=== PATIENT | female | born 1935 | race Caucasian/White ===

== ENCOUNTER → 2018-12-16 | Day surgery (SDC) | payer MEDICARE ==
[2018-12-11 15:03] VITALS: BMI 22.7
[~2018-12-16] MED LIST: CEFAZOLIN 1 GM VIAL ONE; Gentamicin 80 MG/2 ML VIAL ONE; Midazolam HCl 2 mg/2 ml Vial ONE; hydrALAZINE 20 MG/ML VIAL ONE
[2018-12-16 07:05] LABS: Hemoglobin 11.3 g/dL (12.0-16.0); Mean Corpuscular HGB CONC 33.1 g/dL (32.0-36.0); Mean Corpuscular Hemoglobin 31.4 pg (27.0-31.0); Mean Corpuscular Volume 94.8 fL (78.0-98.0); Mean Platelet Volume 8.2 fL (7.4-10.4); Platelet Count 154 thou/uL (130-400); Red Blood Cell (RBC) Count 3.59 mill/uL (4.20-5.40); White Blood Cell (WBC) Count 13.5 thou/uL (4.8-10.8)
[2018-12-16 07:07] LABS: INR-International Normal Ratio 1.1; PTT 29.6 SEC (22.9-36.1)
[2018-12-16 07:25] LABS: Anion Gap 14 mmol/L (10-20); BUN (Urea Nitrogen) 14 mg/dL (9.8-20.1); Calc. Creatinine Clearance 40 mL/min (70-130); Calcium 9.8 mg/dL (7.8-10.44); Carbon Dioxide 25 mmol/L (23-31); Chloride 105 mmol/L (98-107); Estimated GFR-MDRD 45; Glucose 145 mg/dL (83-110); Potassium 4.2 mmol/L (3.5-5.1); Sodium 140 mmol/L (136-145)
[2018-12-16 08:06] LABS: Band 2 % (5-11); Eosinophils 1 % (0-10); Lymphocytes 87 % (21-51); MDiff Complete? YES; Monocytes 1 % (0-10); Neutrophil 9 % (42-75); Polychromasia SLIGHT = 2-3 cells (100X) (0-2/hpf)
--- NOTE | 2018-12-16 10:46 | CCL ---
Date of procedure: 12/16/18 INDICATION FOR PROCEDURE: This is An 83-year-old female with tachy-brenda syndrome who has intermittent atrial fibrillation but remains in sinus rhythm. Is on medical management. Becomes brachycardic. She was advised to undergo a dual chamber pacemaker insertion. She was taken to the cardiac laboratory technologist where she was prepped and draped in the sterile fashion. Using a left subclavian approach, the dual chamber pacemaker was easily inserted. After using modified Seld gerri technique the vein was cannulated. The full dictated note can be found in the chart. She was im planted with a dual chamber pacemaker from [employer] an MRI compatible device, an Coco with atrial t herapy since she has history of intermittent atrial fibrillation. Pacemaker was set with the upper ra te at 120 and the lower rate was set at 60. There were no difficulties or complications encountered. Two screw-in leads were placed. One in the atrium and one in the ventricle without difficulties or co mplications. She was given 2 mg of IV versed for the procedure and also required IV hydralazine. Due to elevated blood pressure up to 200s mmHg systolically. Then the blood pressure eventually decreased down to the 160 range and she remained stable throughout the procedure.
--- NOTE | 2018-12-16 12:59 | RAD ---
PORTABLE CHEST ONE VIEW 12/16/18 at 11:54 a.m. HISTORY: Pacemaker placement. FINDINGS: Comparison made with the exam of 08/13/07. There are changes of median sternotomy. The heart is enlarged. The aorta is tortuous. A left sided pa cemaker device has been placed with bipolar leads in the right atrium and right ventricle. There is c ontinued elevation of the right hemidiaphragm. No lobar consolidation, pneumothoraces, lyudmila pulmonar y edema or pleural effusions are seen. IMPRESSION: No acute process. POS: [facility]
--- NOTE | 2018-12-17 09:24 | DIS ---
DATE OF ADMISSION: 12/16/2018 DATE OF DISCHARGE: DATE OF PROCEDURE: 12/16/2018. She was seen in the outpatient setting to undergo a dual-chamber pacemaker insertion. This was performed today without difficulties or complications. ADMITTING DIAGNOSES: 1. Sick sinus syndrome with tachycardia-bradycardia. 2. Hypertension. 3. Coronary artery disease, status post bypass surgery. 4. Hypercholesterolemia. 5. Chronic lymphocytic leukemia. DISCHARGE DIAGNOSES: 1. Sick sinus syndrome with tachycardia-bradycardia. 2. Hypertension. 3. Coronary artery disease, status post bypass surgery. 4. Hypercholesterolemia. 5. Chronic lymphocytic leukemia. PROCEDURE IN HOSPITAL: Included dual-chamber pacemaker insertion with MRI compatible device with atrial therapies. FOLLOWUP: Her followup will be with me in 7 to 10 days in the office for wound check. She will continue routine follow ups with Dr. Cabrera and also with Dr. Guillaume. DISCHARGE MEDICATIONS: Will be the same as her admission medications, except I will increase metoprolol to 100 mg a day. Otherwise, she will be taking; 1. Aspirin 81 mg a day. 2. Centrum Silver vitamins. 3. Claritin. 4. Losartan 100 mg daily. 5. Amlodipine 5 mg a day. 6. Protonix 40 mg daily. 7. Levothyroxine 112 mcg daily. 8. Eliquis 5 mg twice a day, which she will start tomorrow. 9. Furosemide 20 mg half a tablet daily. 10. Metoprolol ER will be 100 mg a day. She previously was taking just half a tablet. She will increase up to 100 mg a day. 11. CoQ10 of 100 mg with meal. 12. Vitamin D. 13. Citracal plus D. 14. Simvastatin 40 mg q.p.m. 15. Tylenol Extra Strength and medication p.r.n. as needed for pain and hopefully the extra strength Tylenol will suffice. HOSPITAL COURSE: This is a very pleasant 83-year-old female, who has a history of sick sinus syndrome with tachy-brenda. She had intermittent atrial fibrillation, has been remaining in sinus rhythm. She became bradycardic with increased dose of beta-blockers and these were decreased. She had 5 episodes of atrial fibrillation in order to treat her adequately. She was advised to undergo a dual-chamber pacemaker insertion due to the significant bradycardia, which was noted on the monitor. She was in the heart rates in the 30s and 40s. She was advised to undergo pacemaker insertion. This was performed today without difficulties or complications. She was implanted with a dual-chamber pacemaker from [employer] with atrial therapies. This is an MRI compatible device. We will see her back in the office in about 7 to 10 days to ensure that the wound remains stable and there is no evidence of infection. She was informed that should she have any evidence of infection, she needs to call the office immediately. Job ID: [id number]
== END ==
LOC: CCL 05:43
PROVIDERS: ATTEND Internal Medicine Cardiovascular Disease
PROC: 0JH607Z Insertion of Cardiac Resynchronization Pacemaker Pulse Generator into Chest Subcutaneous Tissue and Fascia, Open Approach (ICD-10-PCS; principal; 2018-12-16)
PROC: 02H63JZ Insertion of Pacemaker Lead into Right Atrium, Percutaneous Approach (ICD-10-PCS; 2018-12-16)
PROC: 02HK3JZ Insertion of Pacemaker Lead into Right Ventricle, Percutaneous Approach (ICD-10-PCS; 2018-12-16)
DX: I49.5 Sick sinus syndrome (principal); I48.0 Paroxysmal atrial fibrillation; I25.10 Atherosclerotic heart disease of native coronary artery without angina pectoris; E78.00 Pure hypercholesterolemia, unspecified; C91.10 Chronic lymphocytic leukemia of B-cell type not having achieved remission; I10 Essential (primary) hypertension; E78.2 Mixed hyperlipidemia; I34.0 Nonrheumatic mitral (valve) insufficiency; I35.1 Nonrheumatic aortic (valve) insufficiency; Z87.891 Personal history of nicotine dependence; Z79.82 Long term (current) use of aspirin; Z79.899 Other long term (current) drug therapy; Z95.1 Presence of aortocoronary bypass graft
CPT/HCPCS: 33208; 36415; 71045; 80048; 85025; 85610; 85730; 93005; 93010; 99152; 99153; C1785; C1898; J0360; J0690; J1580; J2250

== ENCOUNTER 2022-11-30 15:13 | Emergency (ER) | payer MEDICARE ==
[2022-11-30 16:06] LABS: #Eosinphils 0.1 thou/uL (0.0-0.7); #Neutrophils 6.1 thou/uL (1.40-6.50); %Basophils 0.2 % (0.0-1.0); %Eosinophils 0.5 % (0.0-10.0); %Lymphocytes 45.9 % (21.0-51.0); %Monocytes 7.3 % (0.0-10.0); %Neutrophils 45.9 % (42.0-75.0); Hemoglobin 12.3 g/dL (12.0-16.0); Mean Corpuscular HGB CONC 33.1 g/dL (32.0-36.0); Mean Corpuscular Hemoglobin 31.7 pg (27.0-31.0); Mean Corpuscular Volume 95.9 fl (78.0-98.0); RBC Distribution Width 12.5 % (11.5-14.5); Red Blood Cell (RBC) Count 3.88 mill/uL (4.20-5.40); White Blood Cell (WBC) Count 13.3 10x3/uL (4.8-10.8)
[2022-11-30 16:10] LABS: Platelet Count 129 10x3/uL (130-400)
[2022-11-30 17:10] LABS: ALT (SGPT) 12 U/L (8-55); AST (SGOT) 21 U/L (5-34); Albumin 4.4 g/dL (3.4-4.8); Alkaline Phosphatase 78 U/L (40-110); Anion Gap 18 mmol/L (10-20); BUN (Urea Nitrogen) 14 mg/dL (9.8-20.1); Bilirubin, Total 1.1 mg/dL (0.2-1.2); Calc. Creatinine Clearance 0 mL/min (70-130); Calcium 9.1 mg/dL (7.8-10.44); Carbon Dioxide 21 mmol/L (23-31); Chloride 100 mmol/L (98-107); Estimated GFR 42; Globulin 1.9 g/dL (2.4-3.5); Glucose 107 mg/dL (83-110); Lipase 8 U/L (8-78); Potassium 4.7 mmol/L (3.5-5.1); Protein, Total 6.3 g/dL (5.8-8.1); Sodium 134 mmol/L (136-145)
[2022-11-30] MEDS ORDERED: Azithromycin 500 MG VIAL ONE (19:32)
== END 2022-11-30 20:30 | disposition home or self-care (01) ==
LOC: ERS 15:13
DX: R19.7 Diarrhea, unspecified (principal); D72.829 Elevated white blood cell count, unspecified
CPT/HCPCS: 80053; 83690; 85025; 87040; 87149 ×2; 96361; 96365; 99284; J0456; 36415; 87077

== ENCOUNTER 2023-07-20 11:40 | Inpatient (IN) | payer MEDICARE ==
[2023-07-20 12:48] LABS: #Basophils 0.1 thou/uL (0.0-0.2); #Monocytes 0.7 thou/uL (0.11-0.59); #Neutrophils 8.4 thou/uL (1.40-6.50); %Basophils 0.6 % (0.0-1.0); %Eosinophils 0.3 % (0.0-10.0); %Lymphocytes 26.7 % (21.0-51.0); %Monocytes 5.4 % (0.0-10.0); %Neutrophils 66.5 % (42.0-75.0); Hematocrit 36.4 % (36.0-47.0); Hemoglobin 11.9 g/dL (12.0-16.0); Mean Corpuscular HGB CONC 32.7 g/dL (32.0-36.0); Mean Corpuscular Hemoglobin 31.9 pg (27.0-31.0); Mean Corpuscular Volume 97.6 fl (78.0-98.0); Mean Platelet Volume 10.3 fL (7.4-10.4); Platelet Count 153 10x3/uL (130-400); RBC Distribution Width 13.3 % (11.5-14.5); Red Blood Cell (RBC) Count 3.73 mill/uL (4.20-5.40); White Blood Cell (WBC) Count 12.6 10x3/uL (4.8-10.8)
[2023-07-20 12:57] LABS: ALT (SGPT) 14 U/L (8-55); AST (SGOT) 19 U/L (5-34); Albumin 4.4 g/dL (3.4-4.8); Alkaline Phosphatase 77 U/L (40-110); Anion Gap 14 mmol/L (10-20); BUN (Urea Nitrogen) 13 mg/dL (9.8-20.1); Bilirubin, Total 1.7 mg/dL (0.2-1.2); Calc. Creatinine Clearance 0 mL/min (70-130); Calcium 9.3 mg/dL (7.8-10.44); Carbon Dioxide 26 mmol/L (23-31); Chloride 101 mmol/L (98-107); Estimated GFR 59; Globulin 2.2 g/dL (2.4-3.5); Glucose 164 mg/dL (83-110); Potassium 3.7 mmol/L (3.5-5.1); Protein, Total 6.6 g/dL (5.8-8.1); Sodium 137 mmol/L (136-145)
[2023-07-20 13:08] LABS: SARS-CoV-2 NAA Rapid Test Not Detected (NotDetected)
[2023-07-20 14:09] LABS: Bacteria/HPF None Seen HPF (None Seen); Bilirubin Negative (Negative); Blood, Urine Negative (Negative); CAUTI Indications for Culture Dysuria,urgency,freq; Clarity Clear (Clear); Glucose, Urine (Dipstick) Normal (Negative); Ketone, Urine Negative (Negative); Leukocyte Negative Leu/uL (Negative); Nitrite Negative (Negative); Protein, Urine (Dipstick) Negative (Neg-Trace); RBC/HPF 0-3 HPF (0-3); Specific Gravity, Urine 1.007 (1.002-1.036); Squamous Epithelial None Seen HPF (0-3); Urobilinogen Normal mg/dL (Less than 2); WBC/HPF 0-3 HPF (0-3)
[2023-07-20 14:15] LABS: Urine Culture Reflex No No
[2023-07-20] MEDS ORDERED: cefTRIAXone (ROCEPHIN) 2 GM VIAL ONE (14:57)
[2023-07-20] MEDS ORDERED: Sodium Chloride 0.9% 200 ML ONE (14:57)
[2023-07-20] MEDS ORDERED: Furosemide 40 MG (4 mL) VIAL ONE (14:57)
[2023-07-20] MEDS ORDERED: Azithromycin 500 MG VIAL ONE (14:57)
[2023-07-20] MEDS ORDERED: Bisacodyl 5 MG TAB PO PRN (15:35)
[2023-07-20] MEDS ORDERED: Ondansetron PF 4 MG/2 ML Vial IVP PRN (15:35)
[2023-07-20] MEDS ORDERED: Senokot S 8.6-50 MG TAB PO PRN (15:35)
[2023-07-20] MEDS ORDERED: Acetaminophen 325 MG TAB PO PRN (15:35)
[2023-07-20] MEDS ORDERED: Bisacodyl 10 MG SUPP PR PRN (15:35)
[2023-07-20] MEDS ORDERED: HumaLOG 300 UNITS/3 ML VIAL SC PRN (16:19)
[2023-07-20] MEDS ORDERED: Dextrose 5% in Water 1,000 ML IV PRN (16:19)
[2023-07-20] MEDS ORDERED: Dextrose 50% Abboject 50 ML SYRINGE SLOW IVP PRN (16:19)
[2023-07-20] MEDS ORDERED: Glucagon 1 MG/ML KIT IM PRN (16:19)
[2023-07-20 16:31] LABS: Troponin I Less than 0.010 ng/mL (< 0.028)
[2023-07-20 17:12] VITALS: BMI 23.3
[2023-07-20 20:05] LABS: Troponin I 0.011 ng/mL (< 0.028)
[2023-07-20 22:40] LABS: Legionella Urinary Ag Negative (Negative); Strep pneumo Urine Ag NEGATIVE (NEGATIVE)
[2023-07-21] MEDS: Melatonin 3 MG TAB PO PRN ×2 (00:38→20:28)
[2023-07-21 05:47] LABS: #Basophils 0.1 thou/uL (0.0-0.2); #Eosinphils 0.1 thou/uL (0.0-0.7); #Monocytes 0.8 thou/uL (0.11-0.59); #Neutrophils 7.3 thou/uL (1.40-6.50); %Basophils 0.4 % (0.0-1.0); %Eosinophils 0.9 % (0.0-10.0); %Lymphocytes 37.8 % (21.0-51.0); %Monocytes 5.6 % (0.0-10.0); %Neutrophils 54.9 % (42.0-75.0); Hematocrit 37.4 % (36.0-47.0); Hemoglobin 12.3 g/dL (12.0-16.0); Mean Corpuscular HGB CONC 32.9 g/dL (32.0-36.0); Mean Corpuscular Hemoglobin 31.4 pg (27.0-31.0); Mean Corpuscular Volume 95.4 fl (78.0-98.0); Mean Platelet Volume 10.1 fL (7.4-10.4); Platelet Count 168 10x3/uL (130-400); RBC Distribution Width 13.3 % (11.5-14.5); Red Blood Cell (RBC) Count 3.92 mill/uL (4.20-5.40); White Blood Cell (WBC) Count 13.4 10x3/uL (4.8-10.8)
[2023-07-21 05:54] LABS: Hemoglobin A1c 6.6 % (4.0-6.0)
[2023-07-21] MEDS: Furosemide 40 MG (4 mL) VIAL SLOW IVP SCH ×2 (06:05→14:39)
[2023-07-21 06:15] LABS: ALT (SGPT) 13 U/L (8-55); AST (SGOT) 18 U/L (5-34); Albumin 4.2 g/dL (3.4-4.8); Alkaline Phosphatase 72 U/L (40-110); Anion Gap 15 mmol/L (10-20); BUN (Urea Nitrogen) 12 mg/dL (9.8-20.1); Bilirubin, Direct 0.7 mg/dL (0.1-0.3); Bilirubin, Total 1.6 mg/dL (0.2-1.2); Calc. Creatinine Clearance 50 mL/min (70-130); Calcium 9.2 mg/dL (7.8-10.44); Carbon Dioxide 25 mmol/L (23-31); Cardiac Risk 2.3 (Less than 4.5); Chloride 98 mmol/L (98-107); Cholesterol 93 mg/dl (< 200 Desired); Estimated GFR 72; Glucose 145 mg/dL (83-110); HDL Cholesterol 41 mg/dL (>60 Neg Risk); LDL Cholesterol, Calculated 39 mg/dL; Magnesium 1.9 mg/dL (1.6-2.6); Potassium 3.7 mmol/L (3.5-5.1); Protein, Total 6.5 g/dL (5.8-8.1); Sodium 134 mmol/L (136-145); Triglycerides 66 mg/dL (Less than 150)
[2023-07-21] MEDS ORDERED: Non-Formulary Item 1 EACH (Cholecalciferol (Vitamin D3) [Vitamin D3] 1,000 UNIT Capsule) PO SCH (09:00)
[2023-07-21] MEDS ORDERED: Pantoprazole 40 MG GRANULES PACKET PO SCH (09:00)
[2023-07-21] MEDS: Calcium Carbonate 600 MG TAB PO SCH (10:08)
[2023-07-21] MEDS: Apixaban 5 MG TAB PO SCH ×2 (10:08→20:28)
[2023-07-21] MEDS: Levothyroxine Sodium 125 MCG TAB PO SCH (10:08)
[2023-07-21] MEDS: Cholecalciferol 1,000 UNITS (25 MCG) TAB PO SCH (10:08)
[2023-07-21] MEDS ORDERED: Empagliflozin 10 MG TAB PO SCH (14:15)
[2023-07-21] MEDS: Amiodarone 200 MG TAB PO SCH ×2 (14:39→20:28)
[2023-07-21] MEDS ORDERED: Azithromycin 250 MG TAB PO SCH (15:00)
[2023-07-21] MEDS ORDERED: cefTRIAXone\\ROCEPHIN 1 GM in Sodium Chloride 0.9% 100 ML IVPB SCH (15:00)
[2023-07-21] MEDS: Losartan 25 MG TAB PO SCH (20:27)
[2023-07-21] MEDS: Atorvastatin Calcium 20 MG TAB PO SCH (20:28)
[2023-07-21] MEDS ORDERED: Simvastatin 40 MG TAB PO SCH (21:00)
[2023-07-21] MEDS ORDERED: Non-Formulary Item 1 EACH (Losartan Potassium [Losartan Potassium] 100 MG Tablet) PO SCH (21:00)
[2023-07-22 05:27] LABS: #Basophils 0.1 thou/uL (0.0-0.2); #Eosinphils 0.2 thou/uL (0.0-0.7); #Monocytes 0.7 thou/uL (0.11-0.59); #Neutrophils 4.7 thou/uL (1.40-6.50); %Basophils 0.6 % (0.0-1.0); %Lymphocytes 44.7 % (21.0-51.0); %Monocytes 6.6 % (0.0-10.0); %Neutrophils 45.8 % (42.0-75.0); Hematocrit 38.5 % (36.0-47.0); Hemoglobin 12.6 g/dL (12.0-16.0); Mean Corpuscular HGB CONC 32.7 g/dL (32.0-36.0); Mean Corpuscular Hemoglobin 31.1 pg (27.0-31.0); Mean Corpuscular Volume 95.1 fl (78.0-98.0); Mean Platelet Volume 10.2 fL (7.4-10.4); Platelet Count 177 10x3/uL (130-400); RBC Distribution Width 13.2 % (11.5-14.5); Red Blood Cell (RBC) Count 4.05 mill/uL (4.20-5.40); White Blood Cell (WBC) Count 10.2 10x3/uL (4.8-10.8)
[2023-07-22] MEDS: Furosemide 40 MG (4 mL) VIAL SLOW IVP SCH ×2 (05:42→13:44)
[2023-07-22 06:30] LABS: Anion Gap 12 mmol/L (10-20); BUN (Urea Nitrogen) 18 mg/dL (9.8-20.1); Calc. Creatinine Clearance 39 mL/min (70-130); Calcium 9.2 mg/dL (7.8-10.44); Carbon Dioxide 27 mmol/L (23-31); Chloride 99 mmol/L (98-107); Estimated GFR 53; Glucose 133 mg/dL (83-110); Magnesium 2.1 mg/dL (1.6-2.6); Potassium 3.3 mmol/L (3.5-5.1); Sodium 135 mmol/L (136-145)
[2023-07-22] MEDS: Apixaban 5 MG TAB PO SCH ×2 (09:31→21:32)
[2023-07-22] MEDS: Levothyroxine Sodium 125 MCG TAB PO SCH ×2 (09:31→09:34)
[2023-07-22] MEDS: Calcium Carbonate 600 MG TAB PO SCH (09:31)
[2023-07-22] MEDS: Empagliflozin 10 MG TAB PO SCH (09:31)
[2023-07-22] MEDS: Amiodarone 200 MG TAB PO SCH ×3 (09:31→21:32)
[2023-07-22] MEDS: Cholecalciferol 1,000 UNITS (25 MCG) TAB PO SCH (09:31)
[2023-07-22] MEDS ORDERED: Potassium Chloride 20 MEQ TAB PO SCH ×2 (12:05→12:15)
[2023-07-22] MEDS: HumaLOG 300 UNITS/3 ML VIAL SC PRN ×2 (13:44→17:25)
[2023-07-22] MEDS: Atorvastatin Calcium 20 MG TAB PO SCH (21:32)
[2023-07-22] MEDS: Losartan 25 MG TAB PO SCH (21:32)
[2023-07-23] MEDS: Levothyroxine Sodium 125 MCG TAB PO SCH (05:26)
[2023-07-23 05:42] LABS: Hematocrit 38.1 % (36.0-47.0); Hemoglobin 12.4 g/dL (12.0-16.0); Manual Diff?? YES; Mean Corpuscular HGB CONC 32.5 g/dL (32.0-36.0); Mean Corpuscular Hemoglobin 31.4 pg (27.0-31.0); Mean Corpuscular Volume 96.5 fl (78.0-98.0); Mean Platelet Volume 10.2 fL (7.4-10.4); Platelet Count 191 10x3/uL (130-400); RBC Distribution Width 13.2 % (11.5-14.5); Red Blood Cell (RBC) Count 3.95 mill/uL (4.20-5.40)
[2023-07-23 05:51] LABS: Delete Auto Diff?? YES
[2023-07-23 06:41] LABS: Eosinophils 1 % (0-10); Lymphocytes 47 % (21-51); Monocytes 7 % (0-10); Neutrophil 38 % (42-75); Platelet Adequacy Comment Platelets Normal; Reactive Lymphocytes 7 % (0-10)
[2023-07-23 06:42] LABS: Anion Gap 14 mmol/L (10-20); BUN (Urea Nitrogen) 29 mg/dL (9.8-20.1); Calc. Creatinine Clearance 32 mL/min (70-130); Calcium 9.1 mg/dL (7.8-10.44); Carbon Dioxide 26 mmol/L (23-31); Chloride 101 mmol/L (98-107); Estimated GFR 42; Glucose 140 mg/dL (83-110); Magnesium 2.2 mg/dL (1.6-2.6); Potassium 3.4 mmol/L (3.5-5.1); Sodium 138 mmol/L (136-145)
[2023-07-23] MEDS ORDERED: Furosemide 40 MG TAB PO SCH (07:30)
[2023-07-23] MEDS ORDERED: Potassium Chloride 20 MEQ TAB PO SCH ×2 (08:00→11:00)
[2023-07-23] MEDS: Amiodarone 200 MG TAB PO SCH (08:07)
[2023-07-23] MEDS: Apixaban 5 MG TAB PO SCH (08:07)
[2023-07-23] MEDS: Empagliflozin 10 MG TAB PO SCH ×2 (08:12→11:45)
[2023-07-23] MEDS: Calcium Carbonate 600 MG TAB PO SCH ×2 (08:12→11:45)
[2023-07-23] MEDS: Cholecalciferol 1,000 UNITS (25 MCG) TAB PO SCH ×2 (08:12→11:45)
[2023-07-23] MEDS ORDERED: PROPOFOL 200 MG/20 ML VIAL ONE (10:50)
[2023-07-23 11:49] VITALS: TEMP 97.3
[2023-07-23 15:30] VITALS: BP 151/65
[2023-07-23] MEDS ORDERED: Amiodarone 200 MG TAB PO SCH (21:00)
== END 2023-07-23 15:55 | disposition home or self-care (01) | DRG 291 ==
LOC: ERS 11:40 → SUATTDRO 11:40 → ERHOLD 15:32 → 2NO 19:33 → OBSVTOIN 07-22 12:41
PROVIDERS: ADMIT Family Medicine; ATTEND Family Medicine
PROC: 5A2204Z Restoration of Cardiac Rhythm, Single (ICD-10-PCS; principal; 2023-07-23)
DX: I11.0 Hypertensive heart disease with heart failure (principal); I50.33 Acute on chronic diastolic (congestive) heart failure; J96.01 Acute respiratory failure with hypoxia; I48.19 Other persistent atrial fibrillation; Z66 Do not resuscitate; I48.0 Paroxysmal atrial fibrillation; D72.829 Elevated white blood cell count, unspecified; E11.9 Type 2 diabetes mellitus without complications; E03.9 Hypothyroidism, unspecified; E78.00 Pure hypercholesterolemia, unspecified; Z79.82 Long term (current) use of aspirin; Z79.890 Hormone replacement therapy; Z79.01 Long term (current) use of anticoagulants; Z98.890 Other specified postprocedural states; Z90.710 Acquired absence of both cervix and uterus; Z95.0 Presence of cardiac pacemaker
CPT/HCPCS: 36415; 36416; 71045; 80048; 80053; 80061; 80076; 81001; 83036; 83605; 83735; 83880; 84443; 84484; 85025; 86850; 86900; 86901; 87040; 87449; 87633; 87899; 92960; 93005; 93306; 93798; 96365; 96366; 96367; 96375; 96376; G0378; J0456; J0696; J1815; J1940; J2704; J3490

== ENCOUNTER 2023-09-04 21:10 | Inpatient (IN) | payer MEDICARE, OTHER ==
[2023-09-04 21:47] LABS: #Basophils 0.1 thou/uL (0.0-0.2); #Eosinphils 0.1 thou/uL (0.0-0.7); #Monocytes 0.8 thou/uL (0.11-0.59); #Neutrophils 10.3 thou/uL (1.40-6.50); %Basophils 0.4 % (0.0-1.0); %Eosinophils 0.4 % (0.0-10.0); %Monocytes 5.2 % (0.0-10.0); %Neutrophils 66.5 % (42.0-75.0); Hematocrit 34.9 % (36.0-47.0); Hemoglobin 11.3 g/dL (12.0-16.0); Mean Corpuscular HGB CONC 32.4 g/dL (32.0-36.0); Mean Corpuscular Hemoglobin 32.1 pg (27.0-31.0); Mean Corpuscular Volume 99.1 fl (78.0-98.0); Mean Platelet Volume 10.3 fL (7.4-10.4); Platelet Count 132 10x3/uL (130-400); RBC Distribution Width 14.1 % (11.5-14.5); Red Blood Cell (RBC) Count 3.52 mill/uL (4.20-5.40); White Blood Cell (WBC) Count 15.5 10x3/uL (4.8-10.8)
[2023-09-04 22:09] LABS: ALT (SGPT) 17 U/L (8-55); AST (SGOT) 21 U/L (5-34); Albumin 4.1 g/dL (3.4-4.8); Alkaline Phosphatase 67 U/L (40-110); Anion Gap 14 mmol/L (10-20); BUN (Urea Nitrogen) 23 mg/dL (9.8-20.1); Bilirubin, Total 0.7 mg/dL (0.2-1.2); CK (CPK) 57 U/L (29-168); Calc. Creatinine Clearance 0 mL/min (70-130); Calcium 8.8 mg/dL (7.8-10.44); Carbon Dioxide 20 mmol/L (23-31); Chloride 107 mmol/L (98-107); Estimated GFR 30; Globulin 1.9 g/dL (2.4-3.5); Glucose 147 mg/dL (83-110); INR-International Normal Ratio 1.2; Potassium 4.1 mmol/L (3.5-5.1); Prothrombin Time 15.2 sec (12.0-14.7); Sodium 137 mmol/L (136-145)
[2023-09-05 00:53] VITALS: BMI 23.8
[2023-09-05] MEDS ORDERED: Morphine 2 MG/ML VIAL SLOW IVP PRN ×2 (01:03→06:13)
[2023-09-05] MEDS ORDERED: Ondansetron PF 4 MG/2 ML Vial IVP PRN (01:15)
[2023-09-05] MEDS ORDERED: Acetaminophen 500 MG TAB ONE (04:24)
[2023-09-05] MEDS: Acetaminophen 500 MG TAB PO PRN (04:26)
[2023-09-05] MEDS ORDERED: Ipratropium/Albuterol 3 ML NEB NEB PRN (06:13)
[2023-09-05] MEDS ORDERED: traMADol HCl 50 MG TAB PO PRN (06:17)
[2023-09-05] MEDS ORDERED: Levothyroxine Sodium 125 MCG TAB ONE (06:42)
[2023-09-05] MEDS: Levothyroxine Sodium 125 MCG TAB PO SCH (06:45)
[2023-09-05] MEDS: Sodium Chloride 0.9% 1,000 ML IV SCH (06:45)
[2023-09-05] MEDS ORDERED: Amiodarone 200 MG TAB ONE (07:50)
[2023-09-05] MEDS ORDERED: Famotidine/PF 20 mg/2ml Vial ONE (07:50)
[2023-09-05] MEDS ORDERED: Polyethylene Glycol 3350 17 GM Packet ONE (07:55)
[2023-09-05] MEDS ORDERED: Rosuvastatin 20 MG TAB PO SCH (09:00)
[2023-09-05] MEDS ORDERED: Amlodipine 5 MG TAB PO SCH (09:00)
[2023-09-05] MEDS: Amiodarone 200 MG TAB PO SCH (09:13)
[2023-09-05] MEDS: Famotidine/PF 20 mg/2ml Vial SLOW IVP SCH (09:13)
[2023-09-05] MEDS: Polyethylene Glycol 3350 17 GM Packet PO SCH (09:13)
[2023-09-05] MEDS ORDERED: CEFAZOLIN 2 GM in Sodium Chloride 0.9% 100 ML IVPB SCH (09:45)
[2023-09-05] MEDS ORDERED: Dextrose 50% Abboject 50 ML SYRINGE SLOW IVP PRN (10:02)
[2023-09-05] MEDS ORDERED: Glucagon 1 MG/ML KIT IM PRN (10:02)
[2023-09-05] MEDS ORDERED: Dextrose 5% in Water 1,000 ML IV PRN (10:02)
[2023-09-05] MEDS: traMADol HCl 50 MG TAB PO SCH (10:18)
[2023-09-05] MEDS: Senokot S 8.6-50 MG TAB PO SCH (10:18)
[2023-09-05] MEDS ORDERED: Acetaminophen 325 MG TAB ONE ×2 (12:54→18:50)
[2023-09-05] MEDS: Acetaminophen 325 MG TAB PO SCH (12:54)
[2023-09-05] MEDS ORDERED: traMADol HCl 50 MG TAB ONE (16:17)
[2023-09-05] MEDS: Rosuvastatin 20 MG TAB PO SCH (22:42)
[2023-09-06 05:38] LABS: #Monocytes 0.7 thou/uL (0.11-0.59); #Neutrophils 6.2 thou/uL (1.40-6.50); %Basophils 0.4 % (0.0-1.0); %Eosinophils 0.4 % (0.0-10.0); %Lymphocytes 34.2 % (21.0-51.0); %Monocytes 6.4 % (0.0-10.0); %Neutrophils 58.3 % (42.0-75.0); Hemoglobin 11.3 g/dL (12.0-16.0); Mean Corpuscular HGB CONC 31.4 g/dL (32.0-36.0); Mean Corpuscular Hemoglobin 31.3 pg (27.0-31.0); Mean Corpuscular Volume 99.7 fl (78.0-98.0); Mean Platelet Volume 10.2 fL (7.4-10.4); Platelet Count 97 10x3/uL (130-400); RBC Distribution Width 14.4 % (11.5-14.5); Red Blood Cell (RBC) Count 3.61 mill/uL (4.20-5.40); White Blood Cell (WBC) Count 10.6 10x3/uL (4.8-10.8)
[2023-09-06 06:05] LABS: Anion Gap 10 mmol/L (10-20); BUN (Urea Nitrogen) 16 mg/dL (9.8-20.1); Calc. Creatinine Clearance 35 mL/min (70-130); Calcium 8.8 mg/dL (7.8-10.44); Carbon Dioxide 21 mmol/L (23-31); Chloride 109 mmol/L (98-107); Estimated GFR 49; Glucose 140 mg/dL (83-110); Potassium 4.7 mmol/L (3.5-5.1); Sodium 135 mmol/L (136-145)
[2023-09-06] MEDS ORDERED: Rocuronium Bromide 10 MG/ML (10ML VIAL) ONE (11:03)
[2023-09-06] MEDS ORDERED: Fentanyl 250 MCG/5 ML VIAL ONE (11:04)
[2023-09-06] MEDS ORDERED: PROPOFOL 200 MG/20 ML VIAL ONE (11:30)
[2023-09-06] MEDS ORDERED: PHENYLEPHRINE-NS 100 MCG/ML 10 ML SYRINGE ONE (11:30)
[2023-09-06] MEDS ORDERED: ePHEDrine Sulfate 50 MG/10 ML VIAL ONE (11:49)
[2023-09-06] MEDS: CEFAZOLIN 2 GM in Sodium Chloride 0.9% 100 ML IVPB SCH (14:24)
[2023-09-06] MEDS: Insulin Regular 300 UNITS/3 ML VIAL SC PRN (21:03)
[2023-09-07 05:23] LABS: Hematocrit 29.5 % (36.0-47.0); Hemoglobin 9.6 g/dL (12.0-16.0); Manual Diff?? YES; Mean Corpuscular HGB CONC 32.5 g/dL (32.0-36.0); Mean Corpuscular Hemoglobin 31.6 pg (27.0-31.0); Platelet Count 112 10x3/uL (130-400); RBC Distribution Width 14.3 % (11.5-14.5); Red Blood Cell (RBC) Count 3.04 mill/uL (4.20-5.40); White Blood Cell (WBC) Count 12.6 10x3/uL (4.8-10.8)
[2023-09-07 05:25] LABS: Delete Auto Diff?? YES
[2023-09-07 05:45] LABS: Anion Gap 13 mmol/L (10-20); BUN (Urea Nitrogen) 21 mg/dL (9.8-20.1); Calc. Creatinine Clearance 31 mL/min (70-130); Calcium 8.8 mg/dL (7.8-10.44); Carbon Dioxide 21 mmol/L (23-31); Chloride 106 mmol/L (98-107); Estimated GFR 42; Glucose 152 mg/dL (83-110); Potassium 4.7 mmol/L (3.5-5.1); Sodium 135 mmol/L (136-145)
[2023-09-07 06:34] LABS: CellaVision Operator ID lab.sh2; Lymphocytes 28 % (21-51); Monocytes 8 % (0-10); Neutrophil 64 % (42-75); Ovalocytes SLIGHT = 2-5 cells HPF (0-1); Platelet Adequacy Comment Platelets Decreased; Polychromasia SLIGHT = 2-3 cells HPF (0-2); Smudge Cells 61.6 %; Total Cell Count 99
[2023-09-07] MEDS: Sodium Chloride 0.9% 1,000 ML IV SCH ×2 (10:35→20:57)
[2023-09-08 06:33] LABS: #Eosinphils 0.1 thou/uL (0.0-0.7); #Monocytes 0.6 thou/uL (0.11-0.59); #Neutrophils 3.9 thou/uL (1.40-6.50); %Basophils 0.2 % (0.0-1.0); %Eosinophils 1.2 % (0.0-10.0); %Lymphocytes 52.5 % (21.0-51.0); %Monocytes 5.8 % (0.0-10.0); Hematocrit 25.8 % (36.0-47.0); Hemoglobin 8.3 g/dL (12.0-16.0); Mean Corpuscular HGB CONC 32.2 g/dL (32.0-36.0); Mean Corpuscular Hemoglobin 31.9 pg (27.0-31.0); Mean Corpuscular Volume 99.2 fl (78.0-98.0); Mean Platelet Volume 10.6 fL (7.4-10.4); Platelet Count 119 10x3/uL (130-400); RBC Distribution Width 14.6 % (11.5-14.5); White Blood Cell (WBC) Count 9.7 10x3/uL (4.8-10.8)
[2023-09-08 07:01] LABS: Anion Gap 7 mmol/L (10-20); BUN (Urea Nitrogen) 24 mg/dL (9.8-20.1); Calc. Creatinine Clearance 36 mL/min (70-130); Calcium 8.5 mg/dL (7.8-10.44); Carbon Dioxide 21 mmol/L (23-31); Chloride 109 mmol/L (98-107); Estimated GFR 51; Glucose 153 mg/dL (83-110); Potassium 3.9 mmol/L (3.5-5.1); Sodium 133 mmol/L (136-145)
[2023-09-08] MEDS: Apixaban 5 MG TAB PO SCH (08:27)
[2023-09-09 04:10] LABS: Hematocrit 27.3 % (36.0-47.0); Hemoglobin 8.7 g/dL (12.0-16.0); Manual Diff?? YES; Mean Corpuscular HGB CONC 31.9 g/dL (32.0-36.0); Mean Corpuscular Hemoglobin 31.3 pg (27.0-31.0); Mean Corpuscular Volume 98.2 fl (78.0-98.0); Mean Platelet Volume 10.5 fL (7.4-10.4); Platelet Count 135 10x3/uL (130-400); RBC Distribution Width 14.7 % (11.5-14.5); Red Blood Cell (RBC) Count 2.78 mill/uL (4.20-5.40); White Blood Cell (WBC) Count 10.1 10x3/uL (4.8-10.8)
[2023-09-09 04:26] LABS: Delete Auto Diff?? YES
[2023-09-09 04:29] LABS: Anion Gap 9 mmol/L (10-20); BUN (Urea Nitrogen) 15 mg/dL (9.8-20.1); Calc. Creatinine Clearance 41 mL/min (70-130); Calcium 8.5 mg/dL (7.8-10.44); Carbon Dioxide 21 mmol/L (23-31); Chloride 110 mmol/L (98-107); Estimated GFR 60; Glucose 133 mg/dL (83-110); Phosphorus 2.4 mg/dL (2.3-4.7); Sodium 136 mmol/L (136-145)
[2023-09-09 05:12] LABS: CellaVision Operator ID lab.sh2; Large Platelets 3.6 % (0-5); Lymphocytes 21 % (21-51); Monocytes 11 % (0-10); Neutrophil 64 % (42-75); Platelet Adequacy Comment Platelets Normal; Polychromasia SLIGHT = 2-3 cells HPF (0-2); Smudge Cells 114.3 %; Total Cell Count 28
[2023-09-09] MEDS: Metamucil PACK PO SCH (10:29)
[2023-09-09] MEDS: Saccharomyces boulardii 250 MG CAP PO SCH (10:29)
[2023-09-11 19:55] VITALS: BP 112/59; TEMP 98
== END 2023-09-11 21:50 | DRG 481 ==
LOC: ERS 21:10 → ERHOLD 23:43 → SURG B 09-05 21:36
PROVIDERS: ADMIT Specialist; ATTEND Specialist
PROC: 0QS604Z Reposition Right Upper Femur with Internal Fixation Device, Open Approach (ICD-10-PCS; principal; 2023-09-06)
DX: S72.141A Displaced intertrochanteric fracture of right femur, initial encounter for closed fracture (principal); D62 Acute posthemorrhagic anemia; N17.9 Acute kidney failure, unspecified; I48.91 Unspecified atrial fibrillation; I25.10 Atherosclerotic heart disease of native coronary artery without angina pectoris; E78.5 Hyperlipidemia, unspecified; E03.9 Hypothyroidism, unspecified; I50.9 Heart failure, unspecified; E11.9 Type 2 diabetes mellitus without complications; D72.829 Elevated white blood cell count, unspecified; E86.0 Dehydration; N18.9 Chronic kidney disease, unspecified; R19.7 Diarrhea, unspecified; W19.XXXA Unspecified fall, initial encounter; Z95.1 Presence of aortocoronary bypass graft; Z79.01 Long term (current) use of anticoagulants; Z98.890 Other specified postprocedural states; Z79.899 Other long term (current) drug therapy; Z90.710 Acquired absence of both cervix and uterus; Z79.890 Hormone replacement therapy; Z95.0 Presence of cardiac pacemaker
CPT/HCPCS: 36415; 36416; 70450; 71045; 72125; 80048; 80053; 82550; 83735; 84100; 85025; 85610; 85730; 93005; C1713; J1815; J2704; J3010; J3490; J7050; S0028

== ENCOUNTER 2025-06-21 16:09 | Observation (INO) | payer MEDICARE ==
[~2025-06-21 16:09] MED LIST changes: -CEFAZOLIN 1 GM VIAL ONE; -Gentamicin 80 MG/2 ML VIAL ONE; +Iopamidol-370 76% 500 ML MDV (1 ML CHARGE) ONE; -Midazolam HCl 2 mg/2 ml Vial ONE; -hydrALAZINE 20 MG/ML VIAL ONE
[2025-06-21 16:46] LABS: #Basophils 0.04 10x3/uL (0.0-0.2); #Eosinophils 0.14 10x3/uL (0.0-0.7); #Monocytes 0.52 10x3/uL (0.11-0.59); #Neutrophils 3.91 10x3/uL (1.40-6.50); %Basophils 0.5 % (0.0-1.0); %Eosinophils 1.9 % (0.0-10.0); %Lymphocytes 36.7 % (21.0-51.0); %Monocytes 7.1 % (0.0-10.0); %Neutrophils 53.4 % (42.0-75.0); Hematocrit 36.0 % (36.0-47.0); Hemoglobin 10.9 g/dL (12.0-16.0); Mean Corpuscular Hemoglobin 29.8 pg (27.0-31.0); Mean Corpuscular Volume 98.4 fL (78.0-98.0); Platelet Count 122 10x3/uL (130-400); Red Blood Cell (RBC) Count 3.66 mill/uL (4.20-5.40); White Blood Cell (WBC) Count 7.33 10x3/uL (4.8-10.8)
[2025-06-21 17:05] LABS: ALT (SGPT) 9 U/L (Less than 34); AST (SGOT) 16 U/L (11-34); Albumin 3.8 g/dL (3.1-4.5); Alkaline Phosphatase 82 U/L (40-110); Anion Gap 14 mmol/L (10-20); BUN (Urea Nitrogen) 35 mg/dL (9.8-20.1); Bilirubin, Total 0.4 mg/dL (0.3-1.2); Calc. Creatinine Clearance 0 mL/min (70-130); Calcium 8.6 mg/dL (7.8-10.44); Carbon Dioxide 25 mmol/L (23-31); Chloride 107 mmol/L (98-107); Globulin 1.6 g/dL (2.4-3.5); Glucose 128 mg/dL (83-110); Magnesium 2.4 mg/dL (1.6-2.6); Potassium 4.5 mmol/L (3.5-5.1); Sodium 141 mmol/L (136-145)
[2025-06-21 17:18] LABS: INR-International Normal Ratio 1.7; Prothrombin Time 20.0 sec (12.0-14.7)
[2025-06-21 17:19] LABS: PTT 36.9 sec (22.9-36.1)
[2025-06-21 20:38] LABS: Bacteria/HPF None Seen HPF (None Seen); CAUTI Indications for Culture Dysuria,urgency,freq; Glucose, Urine (Dipstick) 500 mg/dL (Negative); Leukocyte Negative Leu/uL (Negative); Protein, Urine (Dipstick) Negative (Neg-Trace); RBC/HPF 0-3 HPF (0-3); Specific Gravity, Urine 1.007 (1.002-1.036); WBC/HPF None Seen HPF (0-3)
[2025-06-21 20:41] LABS: Urine Culture Reflex No No
[2025-06-21] MEDS ORDERED: Ondansetron PF 4 MG/2 ML Vial IVP PRN (21:51)
[2025-06-21] MEDS ORDERED: Calcium Carbonate 500 MG ChewTAB PO PRN (21:51)
[2025-06-21] MEDS ORDERED: Acetaminophen 325 MG TAB PO PRN (21:51)
[2025-06-21] MEDS ORDERED: Guaifenesin DM 100-10/5 ML UDCUP PO PRN (21:51)
[2025-06-21] MEDS ORDERED: Artificial Tear Ophth Sol 15 ML BOT EA EYE PRN (22:00)
[2025-06-22 00:09] VITALS: BMI 21.1
[2025-06-22] MEDS: Levothyroxine 175 MCG TAB PO SCH (05:33)
[2025-06-22 05:34] LABS: Anion Gap 16 mmol/L (10-20); BUN (Urea Nitrogen) 30 mg/dL (9.8-20.1); Calc. Creatinine Clearance 30 mL/min (70-130); Calcium 8.7 mg/dL (7.8-10.44); Carbon Dioxide 24 mmol/L (23-31); Chloride 108 mmol/L (98-107); Glucose 132 mg/dL (83-110); Potassium 3.8 mmol/L (3.5-5.1); Sodium 144 mmol/L (136-145)
[2025-06-22 06:10] LABS: #Basophils 0.03 10x3/uL (0.0-0.2); #Eosinophils 0.11 10x3/uL (0.0-0.7); #Monocytes 0.40 10x3/uL (0.11-0.59); #Neutrophils 3.05 10x3/uL (1.40-6.50); %Basophils 0.5 % (0.0-1.0); %Eosinophils 1.8 % (0.0-10.0); %Lymphocytes 41.6 % (21.0-51.0); %Monocytes 6.5 % (0.0-10.0); %Neutrophils 49.4 % (42.0-75.0); Hematocrit 36.7 % (36.0-47.0); Hemoglobin 11.6 g/dL (12.0-16.0); Mean Corpuscular Hemoglobin 30.7 pg (27.0-31.0); Mean Corpuscular Volume 97.1 fL (78.0-98.0); Platelet Count 87 10x3/uL (130-400); Red Blood Cell (RBC) Count 3.78 mill/uL (4.20-5.40); White Blood Cell (WBC) Count 6.16 10x3/uL (4.8-10.8)
[2025-06-22] MEDS: Amiodarone 200 MG TAB PO SCH (10:29)
[2025-06-22] MEDS: Apixaban 2.5 MG TAB PO SCH (10:30)
[2025-06-22 12:13] VITALS: BP 128/77; TEMP 97.4
[2025-06-22] MEDS ORDERED: Rosuvastatin 10 MG TAB PO SCH (21:00)
[2025-06-22] MEDS ORDERED: Gabapentin 100 MG CAP PO SCH (21:00)
[2025-06-23] MEDS ORDERED: FLU (Fluad Triv) 25-26 (65UP)PF 45 MCG/0.5 ML Syringe IM ONE (03:30)
[2025-06-23] MEDS ORDERED: PNEUMOC 20-VAL CONJ-DIP CRM/PF 0.5 ML SYRINGE IM ONE (09:00)
== END 2025-06-22 14:35 | disposition home or self-care (01) ==
LOC: ERS 16:09 → SURG A 21:12
PROVIDERS: ADMIT Internal Medicine; ATTEND Family Medicine
DX: I95.9 Hypotension, unspecified (principal); E86.0 Dehydration; I65.23 Occlusion and stenosis of bilateral carotid arteries; I11.0 Hypertensive heart disease with heart failure; I50.32 Chronic diastolic (congestive) heart failure; E11.9 Type 2 diabetes mellitus without complications; N17.9 Acute kidney failure, unspecified; D64.9 Anemia, unspecified; Z95.1 Presence of aortocoronary bypass graft; Z90.710 Acquired absence of both cervix and uterus; Z98.890 Other specified postprocedural states; Z88.5 Allergy status to narcotic agent; Z88.8 Allergy status to other drugs, medicaments and biological substances; C91.10 Chronic lymphocytic leukemia of B-cell type not having achieved remission
CPT/HCPCS: 70496; 70498; 71045; 80048; 80053; 81001; 82728; 83540; 83550; 83605; 83735; 83880; 84484; 85025 ×2; 85610; 85730; 87040; 93005; 94760; 96360; 96361; 99285; G0378 ×3; J7030; Q9967; 36415